=== PATIENT | female | born 1970 | race Caucasian/White ===

== ENCOUNTER 2016-07-23 15:59 | Emergency (ER) | payer OTHER, SELFPAY ==
[2016-07-23 16:10] VITALS: O2SAT 95
[2016-07-23] MEDS ORDERED: Norco 10/325 MG Tablet ONE (16:44)
[2016-07-23 16:49] LABS: Mean Corpuscular Hemoglobin 27.7 pg (26-32); Mean Platelet Volume 9.4 fl (6-9.5); Platelet Count 280 K/mm3 (150-450); Red Cell Distribution Width 17.7 % (11.5-14.0); White Blood Count 9.6 K/mm3 (4.0-10.5)
--- NOTE | 2016-07-23 16:52 | ERPHSYRPT ---
- History of Present Illness Time Seen by Provider: 07/23/16 16:15 Source: patient, family Exam Limitations: no limitations Patient Subjective Stated Complaint: lt breast redness Triage Nursing Assessment: lt breast redness and pain x5 days. no draiange from nipple. large red/swollen/warm area around lt breast/nipple area. tender with palpation. pt denies injury or hx of problems. denies fever. Physician History: patient noticed painful small nodule near nipple of right breast 5 days ago; no known injury or bite; no pruritis; no d/c; no prior hx; no fever; no hx of breast CA self or family' ; now with diffuse redness of left breast with pain and swelling; Timing/Duration: today (woirse; increase pain , swelling and redness), day(s) ( onset 5 ), gradual onset, worse Severity: severe (01/28) Associated Symptoms: denies symptoms Allergies/Adverse Reactions: No Known Drug Allergies Allergy (Unverified 07/23/16 16:10) Home Medications: Lisinopril/Hydrochlorothiazide [Lisinopril-Hctz 20-25 mg Tab] 1 tab PO DAILY [History] Metformin HCl 500 mg [Glucophage 500 MG] 1,000 mg PO DAILY 04/11/14 [ History] Hydrocodone Bit/Acetaminophen [Varney 7.5-325 Tablet] 1 tab PO QID 09/11/15 [ History] Levothyroxine Sodium 25 Mcg [Synthroid 25 Mcg] 25 mcg PO DAILY 07/23/16 [ History] Lorazepam 2 mg PO HS 07/23/16 [History] Sitagliptin Phosphate [Januvia] 25 mg PO DAILY 07/23/16 [History] Hx Tetanus, Diphtheria Vaccination/Date Given: Yes Hx Influenza Vaccination/Date Given: Yes Hx Pneumococcal Vaccination/Date Given: Yes Immunizations Up to Date: Yes - Review of Systems Constitutional: No Symptoms Eyes: No Symptoms Ears, Nose, & Throat: No Symptoms Respiratory: No Cough, No Dyspnea, No Wheezing Cardiac: No Chest Pain, No Edema, No Palpitations, No Syncope Abdominal/Gastrointestinal: No Abdominal Pain, No Nausea, No Vomiting, No Diarrhea Genitourinary Symptoms: No Symptoms Musculoskeletal: No Symptoms Skin: Other (red painful swelling left breast with skin texture changes of peau de l'orange) Neurological: No Symptoms Psychological: No Symptoms Endocrine: No Symptoms Hematologic/Lymphatic: No Symptoms Immunological/Allergic: No Symptoms - Past Medical History Pertinent Past Medical History: Yes Neurological History: No Pertinent History ENT History: No Pertinent History Cardiac History: High Cholesterol, Hypertension Respiratory History: No Pertinent History Endocrine Medical History: Diabetes Type II Musculoskeletal History: Arthritis GI Medical History: No Pertinent History History: Renal Disease Psycho-Social History: No Pertinent History Other Medical History: pain in right hip and back - Past Surgical History Past Surgical History: Yes Neuro Surgical History: No Pertinent History Cardiac: No Pertinent History Respiratory: No Pertinent History Gastrointestinal: Appendectomy, Cholecystectomy, Hernia Repair Genitourinary: No Pertinent History Musculoskeletal: No Pertinent History Female Surgical History: No Pertinent History, Section - Social History Smoking Status: Current every day smoker How long have you smoked: 20 Exposure to second hand smoke: Yes Alcohol Use: None Drug Use: none Patient Lives Alone: No Significant Family History: heart disease, diabetes - Female History Hx Last Menstrual Period: 3 months Hx Now: No - Nursing Vital Signs Nursing Vital Signs: Initial Vital Signs Temperature 97.6 F Temperature Source Oral Pulse Rate 94 Respiratory Rate 18 Blood Pressure [Right Arm] 141/67 Pain Intensity 8 - Physical Exam General Appearance: moderate distress, alert, obese Eye Exam: PERRL/EOMI, eyes nml inspection, EOM palsy/anisocoria Ears, Nose, Throat Exam: normal ENT inspection, TMs normal, pharynx normal, moist mucous membranes Neck Exam: normal inspection, non-tender, supple, full range of motion, No meningismus, No JVD, No lymphadenopathy Respiratory Exam: normal breath sounds, lungs clear, airway intact, No chest tenderness, No respiratory distress Cardiovascular Exam: regular rate/rhythm, normal heart sounds, normal peripheral pulses, capillary refill <2 sec, No murmur Gastrointestinal/Abdomen Exam: soft, normal bowel sounds, No tenderness, No distention, No mass, No guarding, No rebound, No organomegaly Pelvic Exam: deferred Rectal Exam: deferred Back Exam: normal inspection, normal range of motion, No CVA tenderness Extremity Exam: normal inspection, normal range of motion, pedal edema, No pelvis stable, No patsy's sign Neurologic Exam: alert, oriented x 3, cooperative, 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 tested, normal mood/affect, nml cerebellar function, nml station & gait Skin Exam: normal color (exce[t ;eft breast), warm, dry, other (red induration of left breast with tenderness and peau de l'orange changes;no d/c from breaset ; some flucuance; no identifiable masses either breast), No rash Lymphatic Exam: No adenopathy, No axilla node tender (L), No axilla node tender (R) SpO2 Interpretation: normal SpO2: 95 Oxygen Delivery: Room Air - Course Nursing assessment & vital signs reviewed: Yes Ordered Tests: Active Orders 24 hr Category Date Time Status Accucheck STAT Care 07/23/16 16:26 Active BMP Stat Lab 07/23/16 16:41 Completed CBC W DIFF Stat Lab 07/23/16 16:41 Completed CBC W DIFF Stat Lab 07/23/16 17:02 Ordered Manual Differential NC Stat Lab 07/23/16 16:41 Completed Medication Summary Discontinued Medications Generic Name Dose Route Start Last Admin Trade Name Freq PRN Reason Stop Dose Admin Acetaminophen/Hydrocodone Bitart Confirm 07/23/16 16:44 Varney 10/325 Mg Tablet Administered 07/23/16 16:45 Dose 1 tab .ROUTE .STK-MED ONE Acetaminophen/Hydrocodone Bitart 1 tab 07/23/16 16:55 07/23/16 16:59 Varney 10/325 Mg Tablet PO 07/23/16 16:56 1 tab STAT ONE Administration Ceftriaxone Sodium 1,000 mg 07/23/16 16:56 07/23/16 16:59 Rocephin 1000 Mg Inj IM 07/23/16 16:57 1,000 mg STAT ONE Administration Ceftriaxone Sodium Confirm 07/23/16 16:57 Rocephin 1000 Mg Inj Administered 07/23/16 16:58 Dose 1,000 mg .ROUTE .STK-MED ONE Lidocaine HCl Confirm 07/23/16 16:57 Xylocaine 1% Hcl 20 Ml Mdv Administered 07/23/16 16:58 Dose 2 ml .ROUTE .STK-MED ONE Lab/Rad Data: Laboratory Result Diagrams 07/23/16 16:41 07/23/16 16:41 Laboratory Results 07/23/16 07/23/16 Range/Units 16:41 16:41 WBC 9.6 (4.0-10.5) K/mm3 RBC 5.20 (4.1-5.4) M/mm3 Hgb 14.4 (12.0-16.0) gm/dl Hct 48.9 H (35-47) % MCV 94.0 (78-100) fl MCH 27.7 (26-32) pg MCHC 29.4 L (32-36) g/dl RDW 17.7 H (11.5-14.0) % Plt Count 280 (150-450) K/mm3 MPV 9.4 (6-9.5) fl Sodium 138 (136-145) mEq/L Potassium 4.2 (3.5-5.1) mEq/L Chloride 102 (98-107) mEq/L Carbon Dioxide 28.8 (21-32) mEq/L Anion Gap 11.2 (5-15) MEQ/L BUN 10 (9-20) mg/dL Creatinine 0.80 (0.55-1.30) mg/dl Estimated GFR > 60 ML/MIN Glucose 182 H (70-110) MG/DL Calcium 8.9 (8.5-10.1) mg/dL reviewed - Progress Progress: improved (after meds), re-examined (after meds; ) Progress Note: 07/23/16 16:54 scheduled for Mammogram Wednesday at 1 pm to evaluate for possible breast CA; results to Dr Kat; FSBS 196; medicated for pain; will recheckwill give IM atbs to cover infectious possibility will recheck 07/23/16 17:34 rechecked; treatment plan discussed; instructions given Counseled pt/family regarding: lab results, diagnosis, need for follow-up, smoking cessation - Departure Time of Disposition: 17:34 Departure Disposition: Home Clinical Impression: Cellulitis of left breast Condition: Stable Critical Care Time: No Referrals: FELICE CASIANO [Primary Care Provider] - Instructions: Cellulitis -- Adult Additional Instructions: warm compresses; mammogram Wednesday 1 pm; follow up LMD Wednesday Follow-up with family doctor as directed. Call for appointment. Return if any problems. If you smoke please stop. Call or follow up with your family doctor for assistance if you need it to stop. Please wear your seatbelt when driving. Have a nice day. Thank you for allowing us to participate in your care today. :o) Dr Jhonny Goode Prescriptions: Hydrocodone Bit/Acetaminophen [Varney 5-325 Tablet] 1 each PO Q8HPRN PRN #14 tablet PRN Reason: Pain Sulfamethoxazole/Trimethoprim [Bactrim 400-80 mg Tablet] 1 each PO BID #20 tablet
[2016-07-23] MEDS ORDERED: Norco 10/325 MG Tablet PO ONE (16:55)
[2016-07-23] MEDS ORDERED: Rocephin 1000 MG INJ IM ONE (16:56)
[2016-07-23] MEDS ORDERED: Rocephin 1000 MG INJ ONE (16:57)
[2016-07-23] MEDS ORDERED: XYLOCAINE 1% HCL 20 ML MDV ONE (16:57)
[2016-07-23 17:18] LABS: ANION GAP 11.2 MEQ/L (5-15); BLOOD UREA NITROGEN 10 mg/dL (9-20); CHLORIDE 102 mEq/L (98-107); Carbon Dioxide 28.8 mEq/L (21-32); Glucose 182 MG/DL (70-110); Potassium 4.2 mEq/L (3.5-5.1); SODIUM 138 mEq/L (136-145)
[2016-07-23 17:32] LABS: BAND 1 % (0.0-2.0); Basophil 1 % (0.0-1.0); Eosinophil 1 % (0.00-3.0); Total Cells Counted 100
[2016-07-23 17:36] LABS: ANISOCYTOSIS 1+
[2016-07-23 17:38] LABS: Platelet Estimate NORMAL (NORMAL); Polychromasia 1+
[2016-07-23 17:45] VITALS: BP 120/62; PULSE 88
== END 2016-07-23 17:45 | disposition home or self-care (01) ==
LOC: ED 15:59
DX: N61.0 Mastitis without abscess (principal); E11.9 Type 2 diabetes mellitus without complications; Z79.84 Long term (current) use of oral hypoglycemic drugs; E78.00 Pure hypercholesterolemia, unspecified; I10 Essential (primary) hypertension; Z79.899 Other long term (current) drug therapy
CPT/HCPCS: 36415; 80048; 82962; 85025; 96372; 99283; 99284; J0696